=== PATIENT | male | born 1990 | race African-American/Black ===

== ENCOUNTER 2017-05-25 17:25 | Emergency (ER) | payer SELFPAY ==
[2017-05-25 17:52] VITALS: BP 124/84
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
[2017-05-25] MEDS ORDERED: Diphtheria,Pertussis(Acell),Tetanus Vaccine 0.5 ML Syringe IM ONE (18:28)
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
== END 2017-05-25 19:14 | disposition left against medical advice (07) ==
LOC: MW.ED 17:25
DX: S01.511A Laceration without foreign body of lip, initial encounter (principal); Y04.2XXA Assault by strike against or bumped into by another person, initial encounter; Z23 Encounter for immunization
CPT/HCPCS: 70450; 70450-26; 70486; 70486-26; 71020; 71020-26; 90471; 90715; 99283; 99285-25

== ENCOUNTER 2017-05-27 12:07 | Emergency (ER) | payer SELFPAY ==
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
[2017-05-27 12:46] VITALS: BP 123/85
== END 2017-05-27 12:43 | disposition home or self-care (01) ==
LOC: MW.ED 12:07
DX: S01.511A Laceration without foreign body of lip, initial encounter (principal); L08.9 Local infection of the skin and subcutaneous tissue, unspecified; F17.210 Nicotine dependence, cigarettes, uncomplicated; Y04.2XXA Assault by strike against or bumped into by another person, initial encounter
CPT/HCPCS: 99282; 99283

== ENCOUNTER 2017-06-15 18:06 | Emergency (ER) | payer SELFPAY ==
[2017-06-15] MEDS ORDERED: Lidocaine 1% with EPINEPHrine 1:100,000 20 ML MDV ONE (18:10)
[2017-06-15] MEDS ORDERED: Lidocaine 1% with EPINEPHrine 1:100,000 20 ML MDV INJECT ONE (18:11)
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
[2017-06-15 18:57] VITALS: BP 121/73
== END 2017-06-15 19:05 | disposition home or self-care (01) ==
LOC: MW.ED 18:06
DX: R04.0 Epistaxis (principal); F17.210 Nicotine dependence, cigarettes, uncomplicated
CPT/HCPCS: 99282; 99283

== ENCOUNTER 2017-07-18 20:13 | Emergency (ER) | payer SELFPAY ==
--- NOTE | 2017-07-18 20:18 | EDM.PDOC ---
ED HPI GENERAL MEDICAL PROBLEM - General Chief Complaint: Neurological Problem Stated Complaint: SEIZURE Time Seen by Provider: 07/18/17 20:18 Source of Information: Reports: Patient - History of Present Illness INITIAL COMMENTS - FREE TEXT/NARRATIVE: HISTORY AND PHYSICAL: History of present illness: []Patient with history of seizure presents with seizure, is her work with his brother patient initially complained of some dizziness sat on a chair and then seized for 30-45 seconds per brother patient arrives by ambulance on arrival he is alert somewhat postictal no fever nausea vomiting chills sweats no chest pain shortness breath headache dizziness palpitation about a urine symptoms Patient has history of seizure disorder he is not on any medication for this last seizure was in February Review of systems: As per history of present illness and below otherwise all systems reviewed and negative. Past medical history: As per history of present illness and as reviewed below otherwise noncontributory. Surgical history: As per history of present illness and as reviewed below otherwise noncontributory. Social history: No reported history of drug or alcohol abuse. Family history: As per history of present illness and as reviewed below otherwise noncontributory. Physical exam: HEENT: Atraumatic, normocephalic, pupils reactive, negative for conjunctival pallor or scleral icterus, mucous membranes moist, throat clear, neck supple, nontender, trachea midline. Lungs: Clear to auscultation, breath sounds equal bilaterally, chest nontender. Heart: S1S2, regular, negative for clicks, rubs, or JVD. Abdomen: Soft, nondistended, nontender. Negative for masses or hepatosplenomegaly. Negative for costovertebral tenderness. Pelvis: Stable nontender. Genitourinary: Deferred. Rectal: Deferred. Extremities: Atraumatic, negative for cords or calf pain. Neurovascular unremarkable. Neuro: Awake, alert, oriented. Cranial nerves II through XII unremarkable. Cerebellum unremarkable. Motor and sensory unremarkable throughout. Exam nonfocal. Diagnostics: []CT on file from 06/06 Lab as below EKG Chest 1 view Therapeutics: []Saline bolus Ativan 1 mg IV Dilantin 200 mg by mouth Impression: []Seizure like activity Definitive disposition and diagnosis as appropriate pending reevaluation and review of above. Headache Pain Score (Numeric/FACES): 6 - Related Data Allergies Allergy/AdvReac Type Severity Reaction Status Date / Time No Known Allergies Allergy Verified 07/18/17 20:15 Home Meds: Home Meds . [No Known Home Meds] 06/15/17 [History] Past Medical History - Past Health History Medical/Surgical History: Denies Medical/Surgical History Cardiovascular History: Reports: None Respiratory History: Reports: None Psychiatric History: Reports: None - Past Surgical History Cardiovascular Surgical History: Reports: None Social & Family History - Family History Family Medical History: Noncontributory - Tobacco Use Smoking Status *Q: Current Every Day Smoker Years of Tobacco use: 15 Packs/Tins Daily: 1 - Alcohol Use Days Per Week of Alcohol Use: 7 Number of Drinks Per Day: 2 Total Drinks Per Week: 14 - Recreational Drug Use Recreational Drug Use: No ED ROS GENERAL - Review of Systems Review Of Systems: ROS reveals no pertinent complaints other than HPI. ED EXAM, GENERAL - Physical Exam Exam: Not Obtained Course - Vital Signs Last Recorded V/S: Last Vital Signs Temp 36.6 C 07/18/17 20:15 Pulse 84 07/18/17 20:15 Resp 16 07/18/17 20:15 BP 132/82 07/18/17 20:15 Pulse Ox 98 07/18/17 20:15 - Orders/Labs/Meds Orders: Active Orders 24 hr Category Date Time Status EKG 12 Lead [EKG Documentation Completion] [RC] STAT Care 07/18/17 20:17 Active Chest 1V Frontal [CR] Stat Exams 07/18/17 20:17 Taken CKMB [CHEM] Stat Lab 07/18/17 20:24 Results COMPREHENSIVE METABOLIC PN,CMP [CHEM] Stat Lab 07/18/17 20:24 Results CREATINE KINASE,CK [CHEM] Stat Lab 07/18/17 20:24 Results MAGNESIUM [CHEM] Stat Lab 07/18/17 20:24 Results PROLACTIN [CHEM] Stat Lab 07/18/17 20:24 Results TSH [CHEM] Stat Lab 07/18/17 20:24 Results Phenytoin Med 07/18/17 21:15 Active 200 mg PO DAILY Sodium Chloride 0.9% [Normal Saline] 1,000 ml Med 07/18/17 20:27 Active IV STAT Medication Orders Sodium Chloride (Normal Saline) 1,000 mls @ 999 mls/hr IV STAT ONE Stop: 07/18/17 21:27 Last Admin: 07/18/17 20:37 Dose: 999 mls/hr Phenytoin Sodium (Phenytoin) 200 mg PO DAILY MARIA LUISA Labs: Laboratory Tests 07/18/17 07/18/17 07/18/17 Range/Units 20:24 20:24 20:24 WBC 3.65 L (4.0-11.0) K/uL RBC 4.35 L (4.50-5.90) M/uL Hgb 13.7 (13.0-17.0) g/dL Hct 39.4 (38.0-50.0) % MCV 90.6 (80.0-98.0) fL MCH 31.5 (27.0-32.0) pg MCHC 34.8 (31.0-37.0) g/dL RDW Std Deviation 48.6 (28.0-62.0) fl RDW Coeff of [place] 15 (11.0-15.0) % Plt Count 65 L (150-400) K/uL MPV 11.10 (7.40-12.00) fL Neut % (Auto) 57.8 (48.0-80.0) % Lymph % (Auto) 25.5 (16.0-40.0) % [place] % (Auto) 14.8 (0.0-15.0) % Eos % (Auto) 1.6 (0.0-7.0) % Baso % (Auto) 0.3 (0.0-1.5) % Neut # (Auto) 2.1 (1.4-5.7) K/uL Lymph # (Auto) 0.9 (0.6-2.4) K/uL [place] # (Auto) 0.5 (0.0-0.8) K/uL Eos # (Auto) 0.1 (0.0-0.7) K/uL Baso # (Auto) 0.0 (0.0-0.1) K/uL Nucleated RBC % 0.0 /100WBC Nucleated RBCs # 0 K/uL Sodium 136 (136-146) mmol/L Potassium 3.6 (3.5-5.1) mmol/L Chloride 103 (98-110) mmol/L Carbon Dioxide 21 (21-31) mmol/L BUN 13 (6.0-23.0) mg/dL Creatinine 0.7 (0.6-1.5) mg/dL Est Cr Clr Drug Dosing TNP Estimated GFR (MDRD) > 60.0 ml/min Glucose 86 (60-110) mg/dL Calcium 9.5 (8.8-10.8) mg/dL Magnesium 1.4 L (1.5-2.3) mEq/L Total Bilirubin 0.4 (0.1-1.5) mg/dL AST 171 H (5-40) IU/L ALT 110 H (8-54) IU/L Alkaline Phosphatase 77 (40-150) Creatine Kinase 199 (9-236) IU/L Troponin I < 0.10 (0.0-0.29) NG/ML Total Protein 7.6 (6.0-8.0) g/dL Albumin 4.4 (3.5-5.0) g/dL Globulin 3.2 (2.0-3.5) g/dL Albumin/Globulin Ratio 1.4 (1.3-2.8) Urine Color Urine Appearance Urine pH (5.0-8.0) Ur Specific [place] (1.001-1.035) Urine Protein (NEGATIVE) mg/dL Urine Glucose (UA) (NEGATIVE) mg/dL Urine Ketones (NEGATIVE) mg/dL Urine Occult Blood (NEGATIVE) Urine Nitrite (NEGATIVE) Urine Bilirubin (NEGATIVE) Urine Urobilinogen (<2.0) EU/dL Ur Leukocyte Esterase (NEGATIVE) Urine RBC (0-2/HPF) Urine WBC (0-5/HPF) Ur Epithelial Cells (NONE-FEW) Urine Bacteria (NEGATIVE) 07/18/17 Range/Units 20:40 WBC (4.0-11.0) K/uL RBC (4.50-5.90) M/uL Hgb (13.0-17.0) g/dL Hct (38.0-50.0) % MCV (80.0-98.0) fL MCH (27.0-32.0) pg MCHC (31.0-37.0) g/dL RDW Std Deviation (28.0-62.0) fl RDW Coeff of [place] (11.0-15.0) % Plt Count (150-400) K/uL MPV (7.40-12.00) fL Neut % (Auto) (48.0-80.0) % Lymph % (Auto) (16.0-40.0) % [place]igg % (Auto) (0.0-15.0) % Eos % (Auto) (0.0-7.0) % Baso % (Auto) (0.0-1.5) % Neut # (Auto) (1.4-5.7) K/uL Lymph # (Auto) (0.6-2.4) K/uL [place] # (Auto) (0.0-0.8) K/uL Eos # (Auto) (0.0-0.7) K/uL Baso # (Auto) (0.0-0.1) K/uL Nucleated RBC % /100WBC Nucleated RBCs # K/uL Sodium (136-146) mmol/L Potassium (3.5-5.1) mmol/L Chloride (98-110) mmol/L Carbon Dioxide (21-31) mmol/L BUN (6.0-23.0) mg/dL Creatinine (0.6-1.5) mg/dL Est Cr Clr Drug Dosing Estimated GFR (MDRD) ml/min Glucose (60-110) mg/dL Calcium (8.8-10.8) mg/dL Magnesium (1.5-2.3) mEq/L Total Bilirubin (0.1-1.5) mg/dL AST (5-40) IU/L ALT (8-54) IU/L Alkaline Phosphatase (40-150) Creatine Kinase (9-236) IU/L Troponin I (0.0-0.29) NG/ML Total Protein (6.0-8.0) g/dL Albumin (3.5-5.0) g/dL Globulin (2.0-3.5) g/dL Albumin/Globulin Ratio (1.3-2.8) Urine Color YELLOW Urine Appearance CLEAR Urine pH 6.0 (5.0-8.0) Ur Specific [place] 1.025 (1.001-1.035) Urine Protein 30 (NEGATIVE) mg/dL Urine Glucose (UA) NEGATIVE (NEGATIVE) mg/dL Urine Ketones NEGATIVE (NEGATIVE) mg/dL Urine Occult Blood TRACE-LYSED (NEGATIVE) Urine Nitrite NEGATIVE (NEGATIVE) Urine Bilirubin NEGATIVE (NEGATIVE) Urine Urobilinogen 0.2 (<2.0) EU/dL Ur Leukocyte Esterase NEGATIVE (NEGATIVE) Urine RBC 0-2 (0-2/HPF) Urine WBC 0-1 (0-5/HPF) Ur Epithelial Cells RARE (NONE-FEW) Urine Bacteria RARE (NEGATIVE) Meds: Medications Generic Name Dose Route Start Last Admin Trade Name Freq PRN Reason Stop Dose Admin Sodium Chloride 1,000 mls @ 999 mls/hr 07/18/17 20:27 07/18/17 20:37 Normal Saline IV 07/18/17 21:27 999 mls/hr STAT ONE Administration Phenytoin Sodium 200 mg 07/18/17 21:15 Phenytoin PO DAILY MARIA LUISA Discontinued Medications Generic Name Dose Route Start Last Admin Trade Name Freq PRN Reason Stop Dose Admin Lorazepam 1 mg 07/18/17 20:26 07/18/17 20:38 Ativan IVPUSH 07/18/17 20:27 1 mg ONETIME ONE Administration Departure - Departure Time of Disposition: 21:16 Disposition: Home, Self-Care 01 Condition: Good Clinical Impression: Seizure-like activity - Discharge Information Referrals: PCP,None [Primary Care Provider] - Forms: ED Department Discharge Additional Instructions: Dilantin 200 mg by mouth twice a day Follow-up with neurology a referral will be provided to be seen within one week I can provide medication adjustment Patient should also establish primary care provider number will be provided below [facility] Special[facility] - Neurology Professional Building [address] [place] [address], [address] [place] [address] [facility] - Primary Care [facility] [address] [place] [address] The following information is given to patients seen in the emergency department who are being discharged to home. This information is to outline your options for follow-up care. We provide all patients seen in our emergency department with a follow-up referral. The need for follow-up, as well as the timing and circumstances, are variable depending upon the specifics of your emergency department visit. If you don't have a primary care physician on staff, we will provide you with a referral. We always advise you to contact your personal physician following an emergency department visit to inform them of the circumstance of the visit and for follow-up with them and/or the need for any referrals to a consulting specialist. The emergency department will also refer you to a specialist when appropriate. This referral assures that you have the opportunity for follow-up care with a specialist. All of these measure are taken in an effort to provide you with optimal care, which includes your follow-up. Under all circumstances we always encourage you to contact your private physician who remains a resource for coordinating your care. When calling for follow-up care, please make the office aware that this follow-up is from your recent emergency room visit. If for any reason you are refused follow-up, please contact the [facility] emergency department at and asked to speak to the emergency department charge nurse. - My Orders Last 24 Hours: My Active Orders 07/18/17 20:17 EKG 12 Lead [EKG Documentation Completion] [RC] STAT Chest 1V Frontal [CR] Stat 07/18/17 20:24 CKMB [CHEM] Stat COMPREHENSIVE METABOLIC PN,CMP [CHEM] Stat CREATINE KINASE,CK [CHEM] Stat MAGNESIUM [CHEM] Stat PROLACTIN [CHEM] Stat TSH [CHEM] Stat 07/18/17 20:27 Sodium Chloride 0.9% [Normal Saline] 1,000 ml IV STAT 07/18/17 21:15 Phenytoin 200 mg PO DAILY - Assessment/Plan Last 24 Hours: My Active Orders 07/18/17 20:17 EKG 12 Lead [EKG Documentation Completion] [RC] STAT Chest 1V Frontal [CR] Stat 07/18/17 20:24 CKMB [CHEM] Stat COMPREHENSIVE METABOLIC PN,CMP [CHEM] Stat CREATINE KINASE,CK [CHEM] Stat MAGNESIUM [CHEM] Stat PROLACTIN [CHEM] Stat TSH [CHEM] Stat 07/18/17 20:27 Sodium Chloride 0.9% [Normal Saline] 1,000 ml IV STAT 07/18/17 21:15 Phenytoin 200 mg PO DAILY
[2017-07-18] MEDS ORDERED: LORazepam 2 MG/ML MDV IVPUSH ONE (20:26)
[2017-07-18] MEDS ORDERED: Sodium Chloride 0.9% 1,000 ML IV ONE (20:27)
[2017-07-18 21:01] LABS: CHLORIDE,CL 103 mmol/L (98-110); SODIUM,NA 136 mmol/L (136-146)
[2017-07-18] MEDS ORDERED: Phenytoin 100 MG Cap.ER PO SCH (21:15)
[2017-07-18 22:11] VITALS: BP 109/70
--- NOTE | 2017-07-19 10:45 | CR ---
EXAM DATE: 07/18/17 PATIENT'S AGE: 26 Patient: SOURAV MORENO Facility: [place], [place] Site . Site : 1990 Study: XRay Chest [id number]/28/2017 8:47:24 PM Ordering Physician: Doctor Jenkins Final Report: INDICATION: seizure TECHNIQUE: Chest 1 view. COMPARISON: 05/25/17 FINDINGS: Cardiovascular and mediastinum: Heart size and vasculature are normal in caliber and appearance. Mediastinum is within normal limits. Lungs and pleural space: Lungs are clear. No sign of infiltrate or mass. No sign of pleural effusion. No pneumothorax. Bones and soft tissues: No significant findings. IMPRESSION: Unremarkable chest. Dictated by: Octavio Stevens MD @ 07/18/2017 20:54:46 (Electronic Signature) Report Signed by Proxy. API HEALTHCAREFrancisco
== END 2017-07-18 22:20 | disposition home or self-care (01) ==
LOC: MW.ED 20:13
DX: R56.9 Unspecified convulsions (principal); F17.210 Nicotine dependence, cigarettes, uncomplicated
CPT/HCPCS: 36415; 71010; 80053; 81001; 82550; 82553; 83735; 84146; 84443; 84484; 85025; 93005; 96361; 96374; 99285; A9270; J2060; J7040; 99283

== ENCOUNTER 2017-12-14 21:32 | Emergency (ER) | payer SELFPAY ==
--- NOTE | 2017-12-14 21:36 | EDM.PDOC ---
ED HPI GENERAL MEDICAL PROBLEM - General Chief Complaint: Neuro Symptoms/Deficits Stated Complaint: AMB Time Seen by Provider: 12/14/17 21:34 Source of Information: Reports: Patient - History of Present Illness INITIAL COMMENTS - FREE TEXT/NARRATIVE: HISTORY AND PHYSICAL: History of present illness: [Patient presents via EMS, he has had a history of seizure disorder he had witnessed seizure tonight lasting for approximately 5 minutes per family members witnessed the event. Patient was postictal on EMS arrival however he is alert and oriented at time of arrival to the emergency room He had some nausea in the ambulance they did provide Zofran 4 mg IV No fever vomiting chills sweats no chest pain shortness breath headache dizziness or palpitation no bowel or urine symptoms He does not take any medications for seizure/noncompliant ] Review of systems: As per history of present illness and below otherwise all systems reviewed and negative. Past medical history: As per history of present illness and as reviewed below otherwise noncontributory. Surgical history: As per history of present illness and as reviewed below otherwise noncontributory. Social history: No reported history of drug or alcohol abuse. Family history: As per history of present illness and as reviewed below otherwise noncontributory. Physical exam: HEENT: Atraumatic, normocephalic, pupils reactive, negative for conjunctival pallor or scleral icterus, mucous membranes moist, throat clear, neck supple, nontender, trachea midline. Lungs: Clear to auscultation, breath sounds equal bilaterally, chest nontender. Heart: S1S2, regular, negative for clicks, rubs, or JVD. Abdomen: Soft, nondistended, nontender. Negative for masses or hepatosplenomegaly. Negative for costovertebral tenderness. Pelvis: Stable nontender. Genitourinary: Deferred. Rectal: Deferred. Extremities: Atraumatic, negative for cords or calf pain. Neurovascular unremarkable. Neuro: Awake, alert, oriented. Cranial nerves II through XII unremarkable. Cerebellum unremarkable. Motor and sensory unremarkable throughout. Exam nonfocal. Diagnostics: [CBC CMP UA drug screen troponin EKG Chest [address] no contrast--performed last may on file ] Therapeutics: [Normal saline 500 mL bolus Zofran 4 mg IV provided via EMS Valium 5 mg IV prophylactically on arrival to ER ]Patient observed for prolonged period in ER no further seizure activity, had seen him previously in June and prescribed Dilantin, he did not take this nor has he had any follow-up since strongly encouraging him to follow-up and establish primary care and begin daily medicines to prevent further seizure activity. Impression: [Seizure disorder Seizure-like activity tonight ] Definitive disposition and diagnosis as appropriate pending reevaluation and review of above. - Related Data Allergies Allergy/AdvReac Type Severity Reaction Status Date / Time No Known Allergies Allergy Verified 12/14/17 22:04 Home Meds: Home Meds . [No Known Home Meds] 06/15/17 [History] Past Medical History - Past Health History Medical/Surgical History: Denies Medical/Surgical History HEENT History: Reports: None Cardiovascular History: Reports: None Respiratory History: Reports: None Neurological History: Reports: Seizure Psychiatric History: Reports: None - Infectious Disease History Infectious Disease History: Reports: None - Past Surgical History Cardiovascular Surgical History: Reports: None Social & Family History - Family History Family Medical History: Noncontributory - Tobacco Use Smoking Status *Q: Current Every Day Smoker Years of Tobacco use: 15 Packs/Tins Daily: 1 - Alcohol Use Days Per Week of Alcohol Use: 7 Number of Drinks Per Day: 2 Total Drinks Per Week: 14 - Recreational Drug Use Recreational Drug Use: No ED ROS GENERAL - Review of Systems Review Of Systems: ROS reveals no pertinent complaints other than HPI. ED EXAM, GENERAL - Physical Exam Exam: See Below Course - Vital Signs Last Recorded V/S: Last Vital Signs Temp 97.4 F 12/14/17 21:32 Pulse 103 H 12/14/17 21:32 Resp 18 12/14/17 21:32 BP 111/60 12/14/17 21:32 Pulse Ox 100 12/14/17 21:32 - Orders/Labs/Meds Orders: Active Orders 24 hr Category Date Time Status EKG Documentation Completion [RC] STAT Care 12/14/17 21:33 Active Chest 1V Frontal [CR] Stat Exams 12/14/17 21:33 Taken Sodium Chloride 0.9% [Normal Saline] 500 ml Med 12/14/17 21:45 Active IV STAT Medication Orders Sodium Chloride (Normal Saline) 500 mls @ 999 mls/hr IV STAT MARIA LUISA Last Admin: 12/14/17 21:52 Dose: 999 mls/hr Labs: Laboratory Tests 12/14/17 12/14/17 12/14/17 Range/Units 21:45 21:45 22:00 WBC 10.49 (4.0-11.0) K/uL RBC 5.28 (4.50-5.90) M/uL Hgb 16.5 (13.0-17.0) g/dL Hct 46.5 (38.0-50.0) % MCV 88.1 (80.0-98.0) fL MCH 31.3 (27.0-32.0) pg MCHC 35.5 (31.0-37.0) g/dL RDW Std Deviation 44.9 (28.0-62.0) fl RDW Coeff of [place] 14 (11.0-15.0) % Plt Count 144 L (150-400) K/uL MPV 10.80 (7.40-12.00) fL Neut % (Auto) 79.3 (48.0-80.0) % Lymph % (Auto) 12.8 L (16.0-40.0) % [place] % (Auto) 7.6 (0.0-15.0) % Eos % (Auto) 0.1 (0.0-7.0) % Baso % (Auto) 0.2 (0.0-1.5) % Neut # (Auto) 8.3 H (1.4-5.7) K/uL Lymph # (Auto) 1.3 (0.6-2.4) K/uL [place] # (Auto) 0.8 (0.0-0.8) K/uL Eos # (Auto) 0.0 (0.0-0.7) K/uL Baso # (Auto) 0.0 (0.0-0.1) K/uL Nucleated RBC % 0.0 /100WBC Nucleated RBCs # 0 K/uL Sodium 137 (136-146) mmol/L Potassium 4.7 (3.5-5.1) mmol/L Chloride 95 L (98-110) mmol/L Carbon Dioxide 12 L (21-31) mmol/L BUN 16 (6.0-23.0) mg/dL Creatinine 1.0 (0.6-1.5) mg/dL Est Cr Clr Drug Dosing 92.09 mL/min Estimated GFR (MDRD) > 60.0 ml/min Glucose 103 (60-110) mg/dL Calcium 10.2 (8.8-10.8) mg/dL Magnesium 2.1 (1.5-2.3) mEq/L Total Bilirubin 1.1 (0.1-1.5) mg/dL AST 60 H (5-40) IU/L ALT 35 (8-54) IU/L Alkaline Phosphatase 78 (40-150) Troponin I < 0.10 (0.0-0.29) NG/ML Total Protein 8.7 H (6.0-8.0) g/dL Albumin 5.0 (3.5-5.0) g/dL Globulin 3.7 H (2.0-3.5) g/dL Albumin/Globulin Ratio 1.4 (1.3-2.8) Urine Color YELLOW Urine Appearance CLEAR Urine pH 5.5 (5.0-8.0) Ur Specific [place] >= 1.030 (1.001-1.035) Urine Protein 100 (NEGATIVE) mg/dL Urine Glucose (UA) NEGATIVE (NEGATIVE) mg/dL Urine Ketones 15 H (NEGATIVE) mg/dL Urine Occult Blood MODERATE (NEGATIVE) Urine Nitrite NEGATIVE (NEGATIVE) Urine Bilirubin NEGATIVE (NEGATIVE) Urine Urobilinogen 0.2 (<2.0) EU/dL Ur Leukocyte Esterase NEGATIVE (NEGATIVE) Urine RBC 0-1 (0-2/HPF) Urine WBC 0-1 (0-5/HPF) Ur Epithelial Cells OCCASIONAL (NONE-FEW) Urine Bacteria RARE (NEGATIVE) Urine Opiates Screen (NEGATIVE) Ur Oxycodone Screen (NEGATIVE) Urine Methadone Screen (NEGATIVE) Ur Barbiturates Screen (NEGATIVE) Ur Phencyclidine Scrn (NEGATIVE) Ur Amphetamine Screen (NEGATIVE) U Methamphetamines Scrn (NEGATIVE) U Benzodiazepines Scrn (NEGATIVE) U Cocaine Metab Screen (NEGATIVE) U Marijuana (THC) Screen (NEGATIVE) 12/14/17 Range/Units 22:00 WBC (4.0-11.0) K/uL RBC (4.50-5.90) M/uL Hgb (13.0-17.0) g/dL Hct (38.0-50.0) % MCV (80.0-98.0) fL MCH (27.0-32.0) pg MCHC (31.0-37.0) g/dL RDW Std Deviation (28.0-62.0) fl RDW Coeff of [place] (11.0-15.0) % Plt Count (150-400) K/uL MPV (7.40-12.00) fL Neut % (Auto) (48.0-80.0) % Lymph % (Auto) (16.0-40.0) % [place] % (Auto) (0.0-15.0) % Eos % (Auto) (0.0-7.0) % Baso % (Auto) (0.0-1.5) % Neut # (Auto) (1.4-5.7) K/uL Lymph # (Auto) (0.6-2.4) K/uL [place] # (Auto) (0.0-0.8) K/uL Eos # (Auto) (0.0-0.7) K/uL Baso # (Auto) (0.0-0.1) K/uL Nucleated RBC % /100WBC Nucleated RBCs # K/uL Sodium (136-146) mmol/L Potassium (3.5-5.1) mmol/L Chloride (98-110) mmol/L Carbon Dioxide (21-31) mmol/L BUN (6.0-23.0) mg/dL Creatinine (0.6-1.5) mg/dL Est Cr Clr Drug Dosing mL/min Estimated GFR (MDRD) ml/min Glucose (60-110) mg/dL Calcium (8.8-10.8) mg/dL Magnesium (1.5-2.3) mEq/L Total Bilirubin (0.1-1.5) mg/dL AST (5-40) IU/L ALT (8-54) IU/L Alkaline Phosphatase (40-150) Troponin I (0.0-0.29) NG/ML Total Protein (6.0-8.0) g/dL Albumin (3.5-5.0) g/dL Globulin (2.0-3.5) g/dL Albumin/Globulin Ratio (1.3-2.8) Urine Color Urine Appearance Urine pH (5.0-8.0) Ur Specific [place] (1.001-1.035) Urine Protein (NEGATIVE) mg/dL Urine Glucose (UA) (NEGATIVE) mg/dL Urine Ketones (NEGATIVE) mg/dL Urine Occult Blood (NEGATIVE) Urine Nitrite (NEGATIVE) Urine Bilirubin (NEGATIVE) Urine Urobilinogen (<2.0) EU/dL Ur Leukocyte Esterase (NEGATIVE) Urine RBC (0-2/HPF) Urine WBC (0-5/HPF) Ur Epithelial Cells (NONE-FEW) Urine Bacteria (NEGATIVE) Urine Opiates Screen NEGATIVE (NEGATIVE) Ur Oxycodone Screen NEGATIVE (NEGATIVE) Urine Methadone Screen NEGATIVE (NEGATIVE) Ur Barbiturates Screen NEGATIVE (NEGATIVE) Ur Phencyclidine Scrn NEGATIVE (NEGATIVE) Ur Amphetamine Screen NEGATIVE (NEGATIVE) U Methamphetamines Scrn NEGATIVE (NEGATIVE) U Benzodiazepines Scrn NEGATIVE (NEGATIVE) U Cocaine Metab Screen NEGATIVE (NEGATIVE) U Marijuana (THC) Screen NEGATIVE (NEGATIVE) Meds: Medications Generic Name Dose Route Start Last Admin Trade Name Freq PRN Reason Stop Dose Admin Sodium Chloride 500 mls @ 999 mls/hr 12/14/17 21:45 12/14/17 21:52 Normal Saline IV 999 mls/hr STAT MARIA LUISA Administration Discontinued Medications Generic Name Dose Route Start Last Admin Trade Name Freq PRN Reason Stop Dose Admin Diazepam 5 mg 12/14/17 21:33 12/14/17 21:53 Valium IV 12/14/17 21:34 5 mg ONETIME ONE Administration Departure - Departure Time of Disposition: 22:40 Disposition: Home, Self-Care 01 Condition: Good Clinical Impression: Seizure disorder - Discharge Information Forms: ED Department Discharge Additional Instructions: Strongly encouraged to follow-up with primary care provider who can provide long -term care and medications for seizure disorder number below is provided to call and schedule an appointment and establish care In the interim return if symptoms persist or worsen or new concerning symptoms develop [facility] - Primary Care [address] [place] [id number] The following information is given to patients seen in the emergency department who are being discharged to home. This information is to outline your options for follow-up care. We provide all patients seen in our emergency department with a follow-up referral. The need for follow-up, as well as the timing and circumstances, are variable depending upon the specifics of your emergency department visit. If you don't have a primary care physician on staff, we will provide you with a referral. We always advise you to contact your personal physician following an emergency department visit to inform them of the circumstance of the visit and for follow-up with them and/or the need for any referrals to a consulting specialist. The emergency department will also refer you to a specialist when appropriate. This referral assures that you have the opportunity for follow-up care with a specialist. All of these measure are taken in an effort to provide you with optimal care, which includes your follow-up. Under all circumstances we always encourage you to contact your private physician who remains a resource for coordinating your care. When calling for follow-up care, please make the office aware that this follow-up is from your recent emergency room visit. If for any reason you are refused follow-up, please contact the [facility] emergency department at and asked to speak to the emergency department charge nurse. - My Orders Last 24 Hours: My Active Orders 12/14/17 21:33 EKG Documentation Completion [RC] STAT Chest 1V Frontal [CR] Stat 12/14/17 21:45 Sodium Chloride 0.9% [Normal Saline] 500 ml IV STAT - Assessment/Plan Last 24 Hours: My Active Orders 12/14/17 21:33 EKG Documentation Completion [RC] STAT Chest 1V Frontal [CR] Stat 12/14/17 21:45 Sodium Chloride 0.9% [Normal Saline] 500 ml IV STAT
[2017-12-14] MEDS ORDERED: Sodium Chloride 0.9% 500 ML IV SCH (21:45)
[2017-12-14 22:17] LABS: CHLORIDE,CL 95 mmol/L (98-110); SODIUM,NA 137 mmol/L (136-146)
[2017-12-14 23:30] VITALS: BP 144/81
--- NOTE | 2017-12-16 10:06 | CR ---
EXAM DATE: 12/14/17 PATIENT'S AGE: 27 Patient: SOURAV MORENO Facility: [place], [place] Site . Site : 1990 Study: XRay Chest [id number]/24/2018 10:11:57 PM Ordering Physician: Ariana Larsen Final Report: INDICATION: Pain TECHNIQUE: Chest 1 view. COMPARISON: None FINDINGS: Cardiovascular and mediastinum: Heart size and vasculature are normal in caliber and appearance. Mediastinum is within normal limits. Lungs and pleural space: Lungs are clear. No sign of infiltrate or mass. No sign of pleural effusion. No pneumothorax. Bones and soft tissues: No significant findings. IMPRESSION: Unremarkable chest. Dictated by Octavio Stevens MD @ 12/14/2017 10:55:51 PM Dictated by: Octavio Stevens MD @ 12/14/2017 22:55:57 (Electronic Signature) Report Signed by Proxy. [facility]IS[facility] HOSPITALFrancisco
== END 2017-12-14 23:30 | disposition home or self-care (01) ==
LOC: MW.ED 21:32
DX: G40.909 Epilepsy, unspecified, not intractable, without status epilepticus (principal); F17.210 Nicotine dependence, cigarettes, uncomplicated
CPT/HCPCS: 36415; 71045; 80053; 80305; 81001; 83735; 84484; 85025; 93005; 96361; 96374; 99284; A9270; J7040; 99283